=== PATIENT | male | born 1980 | race African-American/Black ===

== ENCOUNTER → 2020-02-29 | Outpatient (CLI) | payer MEDICAID ==
[~2020-02-29] MED LIST: BRIM.2 EACHEYE; CEFAZOLIN SODIUM 1000MG/VIAL ONE; DEXAMETHASONE 4MG/ML 1ML VIAL ONE; EPHEDRINE SULFATE 50MG/ML VIAL ONE; ERGO500013 PO; FENTANYL CITRATE/PF 50MCG/ML 2ML VIAL ONE; FENTANYL CITRATE/PF 50MCG/ML 5ML VIAL ONE; GLYCOPYRROLATE 0.2 MG/ML 2ML VIAL ONE; IBUP-2029 PO; INSU100I24 SQ; INSU100I32 SQ; LATA2.5D2 EACHEYE; METOCLOPRAMIDE HCL 10MG/2ML VIAL ONE; MIDAZOLAM HCL 2 MG/2 ML VIAL ONE; NEOSTIGMINE METHYLSULFATE 1MG/ML 10 ML VIAL ONE; ONDANSETRON HCL 4MG/2ML INJ ONE; PHENYLEPHRINE HCL 10 MG/ML 1ML (IV VIAL) IV ONE; PROPOFOL 200MG/20ML VIAL IV ONE; ROCURONIUM BROMIDE 10MG/ML VIAL 5ML IV ONE; SODIUM CHLORIDE 0.9% 10ML VIAL ONE; SUCCINYLCHOLINE CHLORIDE 200MG/10ML IV ONE; TC1U15 TOP
== END | disposition home or self-care (01) ==
LOC: LAB 10:03
PROVIDERS: ATTEND Neurological Surgery
DX: Z01.818 Encounter for other preprocedural examination (principal); Z11.59 Encounter for screening for other viral diseases
CPT/HCPCS: U0003-CS

== ENCOUNTER 2020-03-02 05:31 | Inpatient (IN) | payer MEDICAID ==
[~2020-03-02] VITALS: Ht 188 cm; Wt 93.0 kg
[~2020-03-02 05:31] MED LIST changes: -CEFAZOLIN SODIUM 1000MG/VIAL ONE; -DEXAMETHASONE 4MG/ML 1ML VIAL ONE; -EPHEDRINE SULFATE 50MG/ML VIAL ONE; -ERGO500013 PO; -FENTANYL CITRATE/PF 50MCG/ML 2ML VIAL ONE; -FENTANYL CITRATE/PF 50MCG/ML 5ML VIAL ONE; -GLYCOPYRROLATE 0.2 MG/ML 2ML VIAL ONE; -METOCLOPRAMIDE HCL 10MG/2ML VIAL ONE; -MIDAZOLAM HCL 2 MG/2 ML VIAL ONE; -NEOSTIGMINE METHYLSULFATE 1MG/ML 10 ML VIAL ONE; -ONDANSETRON HCL 4MG/2ML INJ ONE; -PHENYLEPHRINE HCL 10 MG/ML 1ML (IV VIAL) IV ONE; -PROPOFOL 200MG/20ML VIAL IV ONE; -ROCURONIUM BROMIDE 10MG/ML VIAL 5ML IV ONE; -SODIUM CHLORIDE 0.9% 10ML VIAL ONE; -SUCCINYLCHOLINE CHLORIDE 200MG/10ML IV ONE; -TC1U15 TOP
[2020-03-02] MEDS ORDERED: LIDOCAINE HCL/EPINEPHRINE 1%-EPI 1:100,000 20 ML VIAL ONE (06:14)
[2020-03-02] MEDS ORDERED: THROMBIN (BOVINE) 5000 UNITS/VIAL TOP ONE (06:14)
[2020-03-02] MEDS ORDERED: BACITRACIN 50,000 UNITS/VIAL ONE (06:14)
[2020-03-02 06:18] LABS: CHLORIDE 104 mEq/L (98-107)
[2020-03-02] MEDS ORDERED: SODIUM CHLORIDE 0.9% 100 ML IV ONE (06:45)
[2020-03-02] MEDS: SODIUM CHLORIDE 0.9% 1,000 ML IV SCH ×2 (06:45→17:31)
[2020-03-02] MEDS ORDERED: HYDRALAZINE 20MG/ML VIAL IV PRN (07:15)
[2020-03-02] MEDS ORDERED: MORPHINE SULFATE 4 MG/ML CPJ (NOT FOR IM USE) IV PRN (07:15)
[2020-03-02] MEDS ORDERED: HYDROCODONE/ACETAMINOPHEN 5/325MG TABLET PO PRN (07:15)
[2020-03-02] MEDS ORDERED: TC1U15 TOP (08:09)
[2020-03-02] MEDS ORDERED: ERGO500013 PO (08:09)
[2020-03-02] MEDS ORDERED: SODIUM CHLORIDE 0.9% 1,000 ML IV ONE (09:47)
[2020-03-02] MEDS ORDERED: HYDROMORPHONE HCL/PF 2MG/ML CPJ IV PRN (10:00)
[2020-03-02] MEDS ORDERED: ONDANSETRON HCL 4MG/2ML INJ IV PRN (10:00)
[2020-03-02] MEDS ORDERED: MORPHINE SULFATE 2 MG/ML CPJ (NOT FOR IM USE) IV PRN (10:00)
[2020-03-02] MEDS ORDERED: MEPERIDINE HCL/PF 25MG/ML CPJ IV PRN (10:00)
[2020-03-02] MEDS ORDERED: IPRATROPIUM/ALBUTEROL 0.5-3(2.5)MG/3ML NEB HHN ONE (10:00)
[2020-03-02] MEDS ORDERED: DIPHENHYDRAMINE INJ IV PRN (10:30)
[2020-03-02] MEDS ORDERED: NALOXONE INJ IV PRN (10:30)
[2020-03-02] MEDS: HYDROMORPHONE PCA 10MG/50ML IV PRN (10:38)
[2020-03-02 13:00] VITALS: BP 116/65
[2020-03-02] MEDS: ONDANSETRON INJ IV PRN ×2 (13:14→17:15)
[2020-03-02] MEDS ORDERED: CEFAZOLIN SODIUM 1000MG/VIAL IV SCH (14:00)
[2020-03-02] MEDS: CEFAZOLIN 1000MG PREMIX 50 ML IV SCH ×2 (17:15→22:47)
[2020-03-02] MEDS ORDERED: HYDRALAZINE 5 MG in SODIUM CHLORIDE 0.9% 50 ML IV PRN (18:15)
[2020-03-02] MEDS: ONDANSETRON HCL 4MG/2ML INJ IV PRN (20:05)
[2020-03-02 21:03] LABS: HEMATOCRIT. 42.8 % (42.0-52.0); HEMOGLOBIN. 14.5 g/dL (14.0-18.0); MEAN CORPUSCULAR HEMOGLOBIN 33.1 pg (28.0-32.0); MEAN CORPUSCULAR VOLUME 98.1 fL (80.0-94.0); MEAN PLATELET VOLUME 9.6 fl (7.4-10.4); PLATELET 181 x1000/uL (130-400); RED BLOOD CELL COUNT 4.37 mill/uL (4.7-6.1); RED CELL DISTRIBUTION WIDTH 13.7 % (11.6-14.6)
[2020-03-02 21:45] LABS: PLATELET ESTIMATE NORMAL
[2020-03-02] MEDS: INSULIN GLARGINE UD 100 UNITS/ML SYR SUBCUT SCH (21:51)
[2020-03-03] VITALS: BP 100/51
[2020-03-03 04:00] VITALS: BP 107/52
[2020-03-03] MEDS: CEFAZOLIN 1000MG PREMIX 50 ML IV SCH (06:32)
[2020-03-03] MEDS: INSULIN LISPRO 100 UNITS/ML SUBCUT SCH ×3 (06:33→17:20)
[2020-03-03 08:00] VITALS: BP 103/63
[2020-03-03] MEDS: ONDANSETRON INJ IV PRN (08:32)
[2020-03-03 12:00] VITALS: BP 117/50
[2020-03-03] MEDS: BLOOD SUGAR DIAGNOSTIC STRIP TEST SCH ×3 (12:42→21:58)
[2020-03-03] MEDS: SODIUM CHLORIDE 0.9% 1,000 ML IV SCH ×2 (12:56→23:43)
[2020-03-03 16:00] VITALS: BP 119/56
[2020-03-03] MEDS: ONDANSETRON HCL 4MG/2ML INJ IV PRN (18:19)
[2020-03-03 20:00] VITALS: BP 145/61
[2020-03-03] MEDS: INSULIN GLARGINE UD 100 UNITS/ML SYR SUBCUT SCH (22:59)
[2020-03-04] VITALS: BP 132/60
[2020-03-04 04:00] VITALS: BP 111/60
[2020-03-04] MEDS: HYDROMORPHONE PCA 10MG/50ML IV PRN (05:04)
[2020-03-04] MEDS: BLOOD SUGAR DIAGNOSTIC STRIP TEST SCH ×2 (06:40→13:00)
[2020-03-04] MEDS: INSULIN LISPRO 100 UNITS/ML SUBCUT SCH ×2 (07:07→13:02)
[2020-03-04 08:00] VITALS: BP 123/66
[2020-03-04 08:05] LABS: HEMATOCRIT. 41.9 % (42.0-52.0); HEMOGLOBIN. 14.6 g/dL (14.0-18.0); MEAN CORPUSCULAR HEMOGLOBIN 33.9 pg (28.0-32.0); MEAN CORPUSCULAR VOLUME 97.5 fL (80.0-94.0); MEAN PLATELET VOLUME 9.1 fl (7.4-10.4); RED CELL DISTRIBUTION WIDTH 13.5 % (11.6-14.6)
[2020-03-04 08:14] LABS: CHLORIDE 99 mEq/L (98-107)
[2020-03-04] MEDS: ONDANSETRON INJ IV PRN (08:49)
[2020-03-04] MEDS: SODIUM CHLORIDE 0.9% 1,000 ML IV SCH (09:15)
[2020-03-04 10:15] LABS: PLATELET ESTIMATE NORMAL
[2020-03-04 10:16] LABS: PLATELET 168 x1000/uL (130-400)
[2020-03-04] MEDS ORDERED: SIMETHICONE 80MG TABLET CHEW PO PRN (17:00)
== END 2020-03-04 17:28 | disposition home or self-care (01) | DRG 304 ==
LOC: OR 05:31 → 6EST 05:32
PROVIDERS: ADMIT Neurological Surgery; ATTEND Neurological Surgery
PROC: 0SG3071 Fusion of Lumbosacral Joint with Autologous Tissue Substitute, Posterior Approach, Posterior Column, Open Approach (ICD-10-PCS; principal; 2020-03-02)
PROC: 4A11X4G Monitoring of Peripheral Nervous Electrical Activity, Intraoperative, External Approach (ICD-10-PCS; 2020-03-02)
PROC: 01NB0ZZ Release Lumbar Nerve, Open Approach (ICD-10-PCS; 2020-03-02)
PROC: 01NR0ZZ Release Sacral Nerve, Open Approach (ICD-10-PCS; 2020-03-02)
DX: M47.816 Spondylosis without myelopathy or radiculopathy, lumbar region (principal); G82.20 Paraplegia, unspecified; E11.9 Type 2 diabetes mellitus without complications; M51.27 Other intervertebral disc displacement, lumbosacral region; Z79.4 Long term (current) use of insulin; Z79.899 Other long term (current) drug therapy; Z87.81 Personal history of (healed) traumatic fracture
CPT/HCPCS: 36415; 71045; 72100; 76000; 80048; 82962; 85025; 86850; 86900; 88304; 88311; 95863; 95925; 95926; 95928; 95929; 97116; 97162; C1713; J0330; J0360; J0690; J1100; J1170; J1815; J2175; J2250; J2370; J2405; J2704; J2710; J2765; J3010; J3490; J7030